=== PATIENT | female | born 1985 | race American Indian/Alaskan Native ===

== ENCOUNTER 2019-07-29 10:04 | Emergency (ER) | payer MEDICARE ==
[2019-07-29 11:02] LABS: Basophils % (Auto) 0.8 % (0.0-1.8); Eosinophils # (Auto) 0.5 K/mm3 (0.0-0.4); Eosinophils % (Auto) 11.2 % (0.0-4.3); Hematocrit 38.5 % (30.3-42.9); Hemoglobin 12.9 gm/dl (10.1-14.3); Lymphocytes # (Auto) 1.6 K/mm3 (1.2-5.4); Lymphocytes % (Auto) 38.5 % (13.4-35.0); Mean Corpuscular HGB Conc 34 % (30-34); Mean Corpuscular Volume 97 fl (79-97); Monocytes # (Auto) 0.4 K/mm3 (0.0-0.8); Monocytes % (Auto) 10.4 % (0.0-7.3); Platelet Count 217 K/mm3 (140-440); Red Blood Count 3.99 M/mm3 (3.65-5.03); Red Cell Distribution Width 13.5 % (13.2-15.2)
[2019-07-29] MEDS ORDERED: SODIUM CHLORIDE 0.9% 1000 ML 1,000 ML IV ONE (11:10)
[2019-07-29] MEDS ORDERED: MORPHINE 4 MG/1 ML INJ IV ONE (11:10)
[2019-07-29] MEDS ORDERED: ONDANSETRON 4 MG/2 ML INJ IV ONE (11:10)
--- NOTE | 2019-07-29 11:20 | Emergency Department Report ---
Vomiting/Diarrhea - HPI Chief Complaint: Nausea/Vomiting/Diarrhea Stated Complaint: SEVERE CRAMPS/PAIN/VOMIT Time Seen by Provider: 07/29/19 11:01 Duration: 2 Days Severity: severe Nausea/Vomiting Severity: Moderate Diarrhea Severity: None Pain Location: Suprapubic Symptoms: Yes Able to Tolerate Fluids, No Watery Diarrhea, No Bloody diarrhea, No Fever, No Recent Unusual Foods, No Recent Untreated Water, No Recent use of Antibiotics, No Family w/ Similar Symptoms, No Contacts w/ Similar Symptoms, No Rash, No Hematuria, No Recent URI Symptoms Other History: 33-year-old -[place] female presents to the emergency room with severe lower abdominal pain for the last 2 days. Patient admits to nausea vomiting. Patient states that the pain feels like prior as a ripping her insides out and it is constant. Patient reports she has been taking Tylenol and ibuprofen. She states that the pain radiates to her lower back. Patient reports no vaginal odor no vaginal discomfort only is currently on her cycle started on 07/26/2019. Patient admits to a decreased appetite. ED Review of Systems ROS: Stated complaint: SEVERE CRAMPS/PAIN/VOMIT Other details as noted in HPI ED Past Medical Hx - Past Medical History Previous Medical History?: No - Surgical History Past Surgical History?: No - Social History Smoking Status: Current Every Day Smoker Substance Use Type: Alcohol, Marijuana - Medications Home Medications: Home Medications Medication Instructions Recorded Confirmed Last Taken Type Nitrofurantoin Rusk/M-Cryst 100 mg PO Q12HR #20 capsule 07/29/19 Unknown Rx [Macrobid CAP] Vomiting Diarrhea Exam - Exam General: Vital signs noted. No distress. Alert and acting appropriately. HEENT: Yes Moist Mucous Membranes, No Pharyngeal Erythema, No Pharyngeal Exudates, No Rhinorrhea, No Conjuctival Injection, No Frontal Tenderness, No Maxillary Tenderness Neck: No Adenopathy, No Rigidity Lungs: Yes Clear Lung Sounds, Yes Good Air Exchange, No Wheezes, No Stridor, No Cough, No Nasal Flaring, No Retractions, No Use of Accessory Muscles Heart exam: Regular: Yes, Murmur: No, Tachycardia: No Abdomen: Tenderness: Yes (Suprapubic), Peritoneal Signs: No, Distention: No, Hyperactive Bowel sounds: No Skin exam: Rash: No, Edema: No, Normal turgor: Yes Neurologic: Alert and oriented, no deficits. Musculoskeletal: Unremarkable. ED Course Vital Signs 07/29/19 07/29/19 10:20 10:38 Temperature 98.2 F Pulse Rate 82 Respiratory 20 18 Rate Blood Pressure 123/87 O2 Sat by Pulse 100 99 Oximetry ED Medical Decision Making - Lab Data Result diagrams: 07/29/19 10:38 07/29/19 10:38 Laboratory Last Values WBC 4.1 K/mm3 (4.5-11.0) L 07/29/19 10:38 RBC 3.99 M/mm3 (3.65-5.03) 07/29/19 10:38 Hgb 12.9 gm/dl (10.1-14.3) 07/29/19 10:38 Hct 38.5 % (30.3-42.9) 07/29/19 10:38 MCV 97 fl (79-97) 07/29/19 10:38 MCH 33 pg (28-32) H 07/29/19 10:38 MCHC 34 % (30-34) 07/29/19 10:38 RDW 13.5 % (13.2-15.2) 07/29/19 10:38 Plt Count 217 K/mm3 (140-440) 07/29/19 10:38 Lymph % (Auto) 38.5 % (13.4-35.0) H 07/29/19 10:38 Rusk % (Auto) 10.4 % (0.0-7.3) H 07/29/19 10:38 Eos % (Auto) 11.2 % (0.0-4.3) H 07/29/19 10:38 Baso % (Auto) 0.8 % (0.0-1.8) 07/29/19 10:38 Lymph # 1.6 K/mm3 (1.2-5.4) 07/29/19 10:38 Rusk # 0.4 K/mm3 (0.0-0.8) 07/29/19 10:38 Eos # 0.5 K/mm3 (0.0-0.4) H 07/29/19 10:38 Baso # 0.0 K/mm3 (0.0-0.1) 07/29/19 10:38 Seg Neutrophils % 39.1 % (40.0-70.0) L 07/29/19 10:38 Seg Neutrophils # 1.6 K/mm3 (1.8-7.7) L 07/29/19 10:38 Sodium 142 mmol/L (137-145) 07/29/19 10:38 Potassium 4.2 mmol/L (3.6-5.0) 07/29/19 10:38 Chloride 106.4 mmol/L (98-107) 07/29/19 10:38 Carbon Dioxide 23 mmol/L (22-30) 07/29/19 10:38 Anion Gap 17 mmol/L 07/29/19 10:38 BUN 9 mg/dL (7-17) 07/29/19 10:38 Creatinine 0.8 mg/dL (0.7-1.2) 07/29/19 10:38 Estimated GFR > 60 ml/min 07/29/19 10:38 BUN/Creatinine Ratio 11 % 07/29/19 10:38 Glucose 62 mg/dL (65-100) L 07/29/19 10:38 Calcium 9.4 mg/dL (8.4-10.2) 07/29/19 10:38 Total Bilirubin 0.20 mg/dL (0.1-1.2) 07/29/19 10:38 AST 19 units/L (5-40) 07/29/19 10:38 ALT 23 units/L (7-56) 07/29/19 10:38 Alkaline Phosphatase 56 units/L (35-129) 07/29/19 10:38 Total Protein 7.1 g/dL (6.3-8.2) 07/29/19 10:38 Albumin 4.3 g/dL (3.9-5) 07/29/19 10:38 Albumin/Globulin Ratio 1.5 % 07/29/19 10:38 Lipase 23 units/L (13-60) 07/29/19 10:38 Urine Color Red (Yellow) 07/29/19 Unknown Urine Turbidity Cloudy (Clear) 07/29/19 Unknown Urine pH 6.0 (5.0-7.0) 07/29/19 Unknown Ur Specific Kerrick 1.025 (1.003-1.030) 07/29/19 Unknown Urine Protein 100 mg/dl mg/dL (Negative) 07/29/19 Unknown Urine Glucose (UA) Neg mg/dL (Negative) 07/29/19 Unknown Urine Ketones Neg mg/dL (Negative) 07/29/19 Unknown Urine Blood Lg (Negative) 07/29/19 Unknown Urine Nitrite Neg (Negative) 07/29/19 Unknown Urine Bilirubin Neg (Negative) 07/29/19 Unknown Urine Urobilinogen < 2.0 mg/dL (<2.0) 07/29/19 Unknown Ur Leukocyte Esterase Sm (Negative) 07/29/19 Unknown Urine WBC (Auto) 21.0 /HPF (0.0-6.0) H 07/29/19 Unknown Urine RBC (Auto) > 182.0 /HPF (0.0-6.0) 07/29/19 Unknown U Epithel Cells (Auto) 4.0 /HPF (0-13.0) 07/29/19 Unknown Urine Bacteria (Auto) 1+ /HPF (Negative) 07/29/19 Unknown Urine Mucus 1+ /HPF 07/29/19 Unknown - Radiology Data Radiology results: report reviewed [facility] [address] [place] [address] Cat Scan Report Signed Patient: ZOYA PAREDES MR#: [id number] : 1985 Acct:[id number] Age/Sex: 33 / F ADM Date: 07/29/19 Loc: ED Attending Dr: Ordering Physician: SRIKANTH FRIAS Date of Service: 07/29/19 Procedure(s): CT abdomen pelvis wo con Accession Number(s): [id number] cc: SRIKANTH FRIAS CT ABDOMEN AND PELVIS WITHOUT CONTRAST HISTORY: Suprapubic pain radiating to the back. COMPARISON: None TECHNIQUE: Routine abdominal and pelvic CT exam performed without contrast. Lack of intravenous contrast limits evaluation of the vascular and solid organs.. All CT scans at this location are performed using CT dose reduction for ALARA by means of automated exposure control. FINDINGS: CT ABDOMEN: Lung Bases: No significant abnormality. Liver: No significant abnormality. Biliary: No significant abnormality. Spleen: No significant abnormality. Unenlarged. Pancreas: No significant abnormality. Adrenals: No significant abnormality. Kidneys: No stones, pelvocaliectasis, ureterectasis. No perinephric or periureteral stranding. Lymphatics: No lymphadenopathy. Vasculature: No significant abnormality. Bowel/Peritoneum: No significant abnormality. No free air. No free fluid. Normal appendix. CT PELVIC: : No significant abnormality. Lymphatics: No lymphadenopathy. Osseous Structures: No aggressive appearing osseous lesions. Additional Findings: None IMPRESSION: 1. No acute findings or findings to explain the patient's symptoms. No urinary stones or hydronephrosis. Signer Name: Alek Hartman MD Signed: 07/29/2019 12:00 PM Workstation Name: [id number] Transcribed By: RAPHAEL Dictated By: Alek Hartman MD Electronically Authenticated By: Alek Hartman MD Signed Date/Time: 07/29/19 1200 DD/ 1158 TD/TT: - Medical Decision Making 33-year-old -[place] female presents to the emergency room with severe lower abdominal pain for the last 2 days. Patient admits to nausea vomiting. Patient states that the pain feels like prior as a ripping her insides out and it is constant. Patient reports she has been taking Tylenol and ibuprofen. She states that the pain radiates to her lower back. Patient reports no vaginal odor no vaginal discomfort only is currently on her cycle started on 07/26/2019. Patient admits to a decreased appetite. CBC, CMP, lipase, urinalysis IV with normal saline Zofran 4 mg IV Motrin 4 mg IV. Complete antibiotics as prescribed. Increase your fluid intake advance her diet as tolerated. Follow-up with your primary care provider. Tylenol or ibuprofen as needed for pain management Critical care attestation.: If time is entered above; I have spent that time in minutes in the direct care of this critically ill patient, excluding procedure time. ED Disposition Clinical Impression: UTI (urinary tract infection) Qualifiers: Urinary tract infection type: acute cystitis Hematuria presence: with hematuria Qualified Code(s): N30.01 - Acute cystitis with hematuria Disposition: TO HOME OR SELFCARE Is pt being admited?: No Does the pt Need Aspirin: No Condition: Stable Instructions: Urinary Tract Infection in Women (ED) Additional Instructions: Complete antibiotics as prescribed. Increase your fluid intake advance her diet as tolerated. Follow-up with your primary care provider. Tylenol or ibuprofen as needed for pain management Prescriptions: Nitrofurantoin Rusk/M-Cryst [Macrobid CAP] 100 mg PO Q12HR #20 capsule Referrals: IRVING HURLEY MD [Staff Physician] - 3-5 Days Forms: Work/School Release Form(ED)
[2019-07-29 11:26] LABS: Alanine Aminotransferase 23 units/L (7-56); Albumin 4.3 g/dL (3.9-5); BUN/Creatinine Ratio 11; Blood Urea Nitrogen 9 mg/dL (7-17); Calcium 9.4 mg/dL (8.4-10.2); Hemolysis Index 3
[2019-07-29 11:27] LABS: Bacteria,Urine 1+ /HPF (Negative); Bilirubin,Urine NEG (Negative); Blood,Urine LG (Negative); Mucus,Urine 1+ /HPF; Urobilinogen,Urine < 2.0 mg/dL (<2.0)
[2019-07-29 11:28] LABS: Color,Urine Red (Yellow); RBC,Urine > 182.0 /HPF (0.0-6.0)
--- NOTE | 2019-07-29 12:05 | Cat Scan Report ---
CT ABDOMEN AND PELVIS WITHOUT CONTRAST HISTORY: Suprapubic pain radiating to the back. COMPARISON: None TECHNIQUE: Routine abdominal and pelvic CT exam performed without contrast. Lack of intravenous cont rast limits evaluation of the vascular and solid organs.. All CT scans at this location are performed using CT dose reduction for ALARA by means of automated exposure control. FINDINGS: CT ABDOMEN: Lung Bases: No significant abnormality. Liver: No significant abnormality. Biliary: No significant abnormality. Spleen: No significant abnormality. Unenlarged. Pancreas: No significant abnormality. Adrenals: No significant abnormality. Kidneys: No stones, pelvocaliectasis, ureterectasis. No perinephric or periureteral stranding. Lymphatics: No lymphadenopathy. Vasculature: No significant abnormality. Bowel/Peritoneum: No significant abnormality. No free air. No free fluid. Normal appendix. CT PELVIC: : No significant abnormality. Lymphatics: No lymphadenopathy. Osseous Structures: No aggressive appearing osseous lesions. Additional Findings: None IMPRESSION: 1. No acute findings or findings to explain the patient's symptoms. No urinary stones or hydronephros is. Signer Name: Alek Hartman MD Signed: 07/29/2019 12:00 PM Workstation Name: [id number]
[2019-07-29] MEDS ORDERED: IBUPROFEN 800 MG TAB PO ONE (13:49)
[2019-07-29 14:06] VITALS: BP 118/79
== END 2019-07-29 13:49 | disposition home or self-care (01) ==
LOC: ED 10:04
DX: N39.0 Urinary tract infection, site not specified (principal); R11.2 Nausea with vomiting, unspecified; F17.200 Nicotine dependence, unspecified, uncomplicated; F12.10 Cannabis abuse, uncomplicated
CPT/HCPCS: 36415; 74176; 80053; 81001; 83690; 85025; 87086; 96361; 96374; 96375; 99284; J2270; J2405; J7030

== ENCOUNTER 2019-08-26 22:54 | Emergency (ER) | payer MEDICARE ==
[2019-08-26 23:08] VITALS: BP 122/80
[2019-08-26 23:43] LABS: Basophils % (Auto) 0.5 % (0.0-1.8); Eosinophils # (Auto) 0.3 K/mm3 (0.0-0.4); Eosinophils % (Auto) 4.8 % (0.0-4.3); Hematocrit 39.2 % (30.3-42.9); Hemoglobin 13.4 gm/dl (10.1-14.3); Lymphocytes # (Auto) 1.7 K/mm3 (1.2-5.4); Lymphocytes % (Auto) 24.7 % (13.4-35.0); Mean Corpuscular HGB Conc 34 % (30-34); Mean Corpuscular Volume 96 fl (79-97); Monocytes # (Auto) 0.7 K/mm3 (0.0-0.8); Monocytes % (Auto) 11.1 % (0.0-7.3); Platelet Count 226 K/mm3 (140-440); Red Blood Count 4.07 M/mm3 (3.65-5.03); Red Cell Distribution Width 13.5 % (13.2-15.2)
[2019-08-27 00:01] LABS: Alanine Aminotransferase 25 units/L (7-56); Albumin 4.8 g/dL (3.9-5); BUN/Creatinine Ratio 13; Blood Urea Nitrogen 15 mg/dL (7-17); Calcium 9.3 mg/dL (8.4-10.2); Hemolysis Index 4
[2019-08-27] MEDS ORDERED: traMADol 50 MG TAB PO ONE (00:03)
[2019-08-27] MEDS ORDERED: ONDANSETRON 4 MG ODT TAB PO ONE (00:03)
[2019-08-27 00:05] LABS: Bacteria,Urine 2+ /HPF (Negative); Bilirubin,Urine NEG (Negative); Blood,Urine LG (Negative); Color,Urine Red (Yellow); Mucus,Urine FEW /HPF; Urobilinogen,Urine < 2.0 mg/dL (<2.0)
[2019-08-27 00:13] LABS: RBC,Urine > 182.0 /HPF (0.0-6.0); WBC,Urine > 182.0 /HPF (0.0-6.0)
--- NOTE | 2019-08-27 00:34 | Emergency Department Report ---
ED Female HPI - General Chief complaint: Abdominal Pain Stated complaint: SEVERE BACK/ABOMINAL PAIN,VOMITING Time Seen by Provider: 08/26/19 23:54 Source: patient Mode of arrival: Ambulatory Limitations: No Limitations - History of Present Illness Initial comments: Patient is a 33-year-old female presents emergency room complaints of suprapubic abdominal discomfort for 2 days. She states it feels like a cramping and stabbing. She states that since she has gotten older she has had more painful menstrual cycles. she states she has been on her menstrual cycle for two days and that is when the pain began. Patient was evaluated in the emergency de partment last month for the same exact complaint and had a CT abdomen pelvis at that time which was normal. She states that the discomfort makes her feel nauseous and she is had a couple episodes of vomiting. She denies any fever, diarrhea, urinary symptoms, vaginal discharge. She denies any heavy menstrual cycle. She states that she did not follow-up with the [facility] she was referred to last month. She denies any allergies to medications. - Related Data Previous Rx's Medication Instructions Recorded Last Taken Type Nitrofurantoin Worth/M-Cryst 100 mg PO Q12HR #20 capsule 07/29/19 Unknown Rx [Macrobid CAP] cephALEXin [Keflex] 500 mg PO BID 7 Days #14 cap 08/27/19 Unknown Rx Allergies Allergy/AdvReac Type Severity Reaction Status Date / Time No Known Allergies Allergy Unverified 07/29/19 10:19 ED Review of Systems ROS: Stated complaint: SEVERE BACK/ABOMINAL PAIN,VOMITING Other details as noted in HPI Comment: All other systems reviewed and negative ED Past Medical Hx - Past Medical History Previous Medical History?: No - Surgical History Additional Surgical History: - Social History Smoking Status: Never Smoker - Medications Home Medications: Home Medications Medication Instructions Recorded Confirmed Last Taken Type Nitrofurantoin Worth/M-Cryst 100 mg PO Q12HR #20 capsule 07/29/19 Unknown Rx [Macrobid CAP] cephALEXin [Keflex] 500 mg PO BID 7 Days #14 cap 08/27/19 Unknown Rx ED Physical Exam - General Limitations: No Limitations General appearance: alert, in no apparent distress - Head Head exam: Present: atraumatic, normocephalic - Eye Eye exam: Present: normal appearance - ENT ENT exam: Present: mucous membranes moist - Respiratory Respiratory exam: Present: normal lung sounds bilaterally. Absent: respiratory distress, wheezes, rales, rhonchi, stridor, chest wall tenderness, accessory muscle use, decreased breath sounds, prolonged expiratory - Cardiovascular Cardiovascular Exam: Present: regular rate, normal rhythm, normal heart sounds. Absent: systolic murmur, diastolic murmur, rubs, gallop - GI/Abdominal GI/Abdominal exam: Present: soft, tenderness (suprapubic), normal bowel sounds. Absent: distended, guarding, rebound, rigid - Neurological Exam Neurological exam: Present: alert, oriented X3 - Psychiatric Psychiatric exam: Present: normal affect, normal mood - Skin Skin exam: Present: warm, dry, intact ED Course Vital Signs 08/26/19 08/27/19 08/27/19 23:04 00:22 00:35 Temperature 98.0 F Pulse Rate 109 H 89 Respiratory 18 18 18 Rate Blood Pressure 122/80 O2 Sat by Pulse 96 100 Oximetry ED Medical Decision Making - Lab Data Result diagrams: 08/26/19 23:15 08/26/19 23:15 - Medical Decision Making Patient is a 33-year-old female presents emergency room complaints of suprapubic abdominal discomfort for 2 days. She states it feels like a cramping and s tabbing. She states that since she has gotten older she has had more painful menstrual cycles. she states she has been on her menstrual cycle for two days and that is when the pain began. Patient was evaluated in the emergency department last month for the same exact complaint and had a CT abdomen pelvis at that time which was normal. She states that the discomfort makes her feel nauseous and she is had a couple episodes of vomiting. She denies any fever, diarrhea, urinary symptoms, vaginal discharge. She denies any heavy menstrual cycle. She states that she did not follow-up with the [facility] she was referred to last month. She denies any allergies to medications. Vitals with tachycard ia which improved to normal upon repeat. On exam suprapubic tenderness to palpation, no guarding, no rebound, no peritoneal signs. Labs are normal, normal white blood cell count, normal H&H, hCG is negative. UA shows many red blood cells secondary to menstrual cycle, there are many white blood cells and large leukocyte esterase, difficult to say if this is from contamination from the menstrual cycle, will cover patient for UTI with Keflex. Patient given Zofran and tramadol and symptoms improved and she was walking around the emergency department. She was able to tolerate p.o. intake without difficulty. Patient is presenting with dysmenorrhea, patient will be referred to [facility] again. patient given prescription for Keflex. Advised patient Please take medication as prescribed. May alternate Tylenol then ibuprofen every 6-8 hours as needed for discomfort. May use a heating pad. Follow-up with [facility]. It is very important that you follow-up with [facility] for further evaluation and management. Return to the emergency room for any new or worsening symptoms. - Differential Diagnosis Dysmenorrhea, AUB, endometriosis, fibroids, ovarian cyst, adenomyosis Critical care attestation.: If time is entered above; I have spent that time in minutes in the direct care of this critically ill patient, excluding procedure time. ED Disposition Clinical Impression: Dysmenorrhea UTI (urinary tract infection) Qualifiers: Urinary tract infection type: acute cystitis Hematuria presence: without hematuria Qualified Code(s): N30.00 - Acute cystitis without hematuria Disposition: TO HOME OR SELFCARE Is pt being admited?: No Does the pt Need Aspirin: No Condition: Stable Instructions: Dysmenorrhea (ED), Urinary Tract Infection in Women (ED) Additional Instructions: Please take medication as prescribed. May alternate Tylenol then ibuprofen every 6-8 hours as needed for discomfort. May use a heating pad. Follow-up with [facility]. It is very important that you follow-up with [facility] for further evaluation and management. Return to the emergency room for any new or worsening symptoms. Prescriptions: cephALEXin [Keflex] 500 mg PO BID 7 Days #14 cap Referrals: [facility] [Provider Group] - 3-5 Days [facility] [Provider Group] - 3-5 Days [facility] [Provider Group] - 3-5 Days Time of Disposition: 00:32 Print Language: FAROESE
== END 2019-08-27 00:35 | disposition home or self-care (01) ==
LOC: ED 22:54
DX: N39.0 Urinary tract infection, site not specified (principal); N94.6 Dysmenorrhea, unspecified; Z98.890 Other specified postprocedural states
CPT/HCPCS: 36415; 80053; 81001; 84703; 85025; 99283; Q0162